=== PATIENT | male | born 1970 | race Caucasian/White ===

== ENCOUNTER 2016-12-01 12:13 | Day surgery (SDC) | payer BC, OTHER ==
[~2016-12-01 12:13] MED LIST: RINGERS SOLUTION,LACTATED 1,000 ML IV PRN; ceFAZolin SODIUM 1 GM in DEXTROSE 5 % IN WATER 100 ML IV PRN
--- OUTSIDE RECORDS SUMMARY | 2016-12-01 12:17 | XMS REPORT | Continuity of Care Document ---
:1970 Author Organization [employer] [place] [address] Care Team Providers Name Role Phone Bryon Valera Primary Care Provider [phone] Source Comments This disclosure is being made pursuant to the [employer] Away program and contain all information available regarding this patient.[employer] Active Allergies and Adverse Reactions No Known Allergies Current Medications Be aware that medications may not be up to date as of this document. Alwaysverify current medications with the patient. Prescription Sig. Disp. Refills Start Date End Date Status albuterol (PROAIR Inhale 2 1 Inhaler 3 10/28/2016 Active HFA) 108 (90 Base) puffs into MCG/ACT inhaler the lungs every 4 (four) hours as needed for Wheezing. lisinopril Take 1 tablet 30 tablet 11 11/02/2016 Active (PRINIVIL,ZESTRIL) by mouth 5 MG tablet daily. lisinopril Take 1 tablet 30 tablet 11 10/28/2016 11/02/2016 Discontinued (PRINIVIL,ZESTRIL) by mouth 5 MG tablet daily. lisinopril Take 1 tablet 30 tablet 11 11/02/2016 11/02/2016 Discontinued (PRINIVIL,ZESTRIL) by mouth 5 MG tablet daily. Active Problems Problem Noted Date Essential hypertension, benign 10/13/2016 Dyshidrosis 10/18/2014 Most Recent Encounters Date Type Specialty Providers Description 11/10/2016 Refill Family Medicine Valerie Norton RN 10/28/2016 Refill Family Medicine Ayaka Durán RN Chronic cough (Primary Dx); Essential hypertension 10/13/2016 Office Visit Family Medicine Jeff Prieto DO Essential hypertension (Primary Dx); Chronic cough; Mixed hyperlipidemia 10/13/2016 Abstract Family Medicine Татьяна Barnard RN Social History Tobacco Use Types Packs/Day Years Used Date Current Every Day Smoker 1 32 Tobacco Cessation:Ready to Quit: No; Counseling Given: Yes Comments: Alcohol Use Drinks/Week oz/Week Comments Yes regular use of hard liquor 5th of a bottle Last Filed Vital Signs Vital Sign Reading Time Taken Blood Pressure 135/93 10/13/2016 11:21 AM CDT Pulse 67 10/13/2016 11:21 AM CDT Temperature 35.6 C (96.1 F) 10/13/2016 11:21 AM CDT Respiratory Rate 16 10/13/2016 11:21 AM CDT Height 1.854 m (6' 1") 10/18/2014 10:58 AM CDT Weight 88.451 kg (195 lb) 10/13/2016 11:21 AM CDT Body Mass Index 25.73 10/13/2016 11:21 AM CDT Oxygen Saturation 98% 10/13/2016 11:21 AM CDT Plan of Care Patient Goal Type Goal Blood Pressure Blood Pressure below 140/90 Health Maintenance Due Date Last Done Comments Pneumococcal Medium Risk 19-64 yo (1 of 1 - PPSV23) 1989 Tetanus/Pertussis (1 - Tdap) 1989 Influenza Immunization (#1) 2016 Results from Last 3 Months Not on file
[2016-12-01] MEDS ORDERED: RINGERS SOLUTION,LACTATED 1,000 ML IV ONE (12:43)
[2016-12-01] MEDS ORDERED: BUPIVACAINE HCL 50 ML VIAL IJ ONE (13:20)
[2016-12-01] MEDS ORDERED: BUPIVACAINE HCL/EPINEPHRINE 50 ML VIAL IJ ONE (13:20)
[2016-12-01] MEDS ORDERED: DEXAMETHASONE IJ ONE (14:35)
[2016-12-01] MEDS ORDERED: HYDROcodone/ACETAMINOPHEN 1 EACH TABLET PO PRN (15:20)
[2016-12-01] MEDS ORDERED: PROCHLORPERAZINE EDISYLATE 5 MG/ML VIAL IM PRN (15:21)
[2016-12-01 16:12] VITALS: BP 125/69
== END 2016-12-01 12:14 | disposition home or self-care (01) ==
LOC: AMB 12:13
PROVIDERS: ATTEND Podiatrist
PROC: 0YBM0ZX Excision of Right Foot, Open Approach, Diagnostic (ICD-10-PCS; principal; 2016-12-01 13:10)
DX: D36.7 Benign neoplasm of other specified sites (principal); F17.200 Nicotine dependence, unspecified, uncomplicated; Z68.25 Body mass index [BMI] 25.0-25.9, adult

== ENCOUNTER 2017-02-02 10:41 | Emergency (ER) | payer BC ==
[2017-02-02 10:52] VITALS: BP 145/88
--- OUTSIDE RECORDS SUMMARY | 2017-02-02 11:39 | XMS REPORT | Encounter Summary ---
:1970 Author Organization [employer] [place] [address] Care Team Providers Name Role Phone Unavailable Primary Care Provider Unavailable Reason for Visit Reason Comments Medication Refill Encounter Details Date Type Department Care Team Description 10/28/2016 Refill [facility] Ayaka Durán RN Chronic cough (Primary Dx); [address] Essential hypertension [address] [place] [address] [place] [address] [phone] Social History Tobacco Use Types Packs/Day Years Used Date Current Every Day Smoker 1 32 Alcohol Use Drinks/Week oz/Week Comments Yes regular use of hard liquor 5th of a bottle Sex Assigned at Date Recorded Not on file as of this encounter Plan of Treatment Not on fileas of this encounter Goals Patient Goal Type Goal Recent Progress Patient-Stated? Author Blood Pressure Blood Pressure < 135/93(10/13/2016 Jeff Banks 140/90 11:21 AM CDT) V, DO as of this encounter Visit Diagnoses Diagnosis Chronic cough - Primary Cough Essential hypertension Unspecified essential hypertension in this encounter
--- OUTSIDE RECORDS SUMMARY | 2017-02-02 11:39 | XMS REPORT | Encounter Summary ---
:1970 Author Organization [employer] [place] [address] Care Team Providers Name Role Phone Unavailable Primary Care Provider Unavailable Reason for Visit Reason Comments Medication Refill Encounter Details Date Type Department Care Team Description 11/10/2016 Refill [facility] Valerie Gambino, RN [facility] [id number] [place] [address] [phone] Social History Tobacco Use Types Packs/Day Years [...] DO as of this encounter Visit Diagnoses Not on filein this encounter
--- OUTSIDE RECORDS SUMMARY | 2017-02-02 11:39 | XMS REPORT | Clinical Summary ---
:1970 Author Organization [employer] [place] [address] Care Team Providers Name Role Phone Unavailable Primary Care Provider Unavailable Source Comments This disclosure is being made pursuant to the [employer] program and maynot contain all information available regarding this patient.[employer] Allergies No Known Allergies Current Medications Be aware that medications may not be up to date as of this document. Alwaysverify current medications with the patient. Prescription Sig. Disp. 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 lisinopril Take 1 tablet by 30 tablet 11 11/02/2016 Active (PRINIVIL,ZESTRIL) 5 MG mouth daily. tabletIndications:Essen tial hypertension Active Problems Problem Noted Date Essential hypertension, benign 10/13/2016 Dyshidrosis 10/18/2014 Encounters Date Type Specialty Care Team Description 11/10/2016 Refill Family Medicine Valerie Norton RN from Last 3 Months Family History Medical History Relation Name Comments Cancer Father Relation Name Status Comments Father Social History Tobacco Use Types Packs/Day Years Used Date Current Every Day Smoker 1 32 Tobacco Cessation:Ready to Quit: No; Counseling Given: Yes Alcohol Use Drinks/Week oz/Week Comments Yes regular use of hard liquor 5th of a bottle Sex Assigned at Date Recorded Not on file Last Filed Vital Signs Vital Sign Reading Time Taken Blood Pressure 135/93 10/13/2016 11:21 AM CDT Pulse 67 10/13/2016 11:21 AM CDT Temperature 35.6 C (96.1 F) 10/13/2016 11:21 AM CDT Respiratory Rate 16 10/13/2016 11:21 AM CDT Oxygen Saturation 98% 10/13/2016 11:21 AM CDT Inhaled Oxygen Concentration - - Weight 88.5 kg (195 lb) 10/13/2016 11:21 AM CDT Height 185.4 cm (6' 1") 10/18/2014 10:58 AM CDT Body Mass Index 25.73 10/13/2016 11:21 AM CDT Plan of Treatment Health Maintenance Due Date Last Done Comments Pneumococcal Medium Risk 19-64 yo (1 of 1 - PPSV23) 1989 Tetanus/Pertussis (1 - Tdap) 1989 INFLUENZA IMMUNIZATION (#1) 2017 Goals Patient Goal Type Goal Recent Progress Patient-Stated? Author Blood Pressure Blood Pressure < 135/93(10/13/2016 Jeff Banks 140/90 11:21 AM CDT) V, DO Results Not on filefrom Last 3 Months Insurance Payer Benefit Plan / Group Subscriber ID Type Phone Address [facility] [id number] [facility] [id number] [place] [address] [facility] ZZ BANNER [id number] [address] [place] [address] y [phone] [place] [address]
--- OUTSIDE RECORDS SUMMARY | 2017-02-02 11:40 | XMS REPORT | Encounter Summary ---
:1970 Author Organization [employer] [place] [address] Care Team Providers Name Role Phone Unavailable Primary Care Provider Unavailable Encounter Details Date Type Department Care Team Description 10/13/2016 Abstract [facility] Татьяна Cardenas RN [address] [place] [address] [phone] Social History Tobacco Use Types Packs/Day Years [...]
--- OUTSIDE RECORDS SUMMARY | 2017-02-02 11:42 | XMS REPORT | Encounter Summary ---
:1970 Author Organization [employer] [place] [address] Care Team Providers Name Role Phone Unavailable Primary Care Provider Unavailable Reason for Referral Diagnostic Radiology (Routine) Status Reason Specialty Diagnoses / Referred By Referred To Procedures Contact Contact Authorized Diagnoses Chronic cough Jeff Prieto V, Procedures [place]R CHE[place] 2 [place] [address] [place], [place] [address] Reason for Visit Reason Comments Elevated Blood Pressure Follow-up Encounter Details Date Type Department Care Team Description 10/13/2016 Office Visit [facility] Jeff Prieto V, Essential hypertension (Primary Dx); [facility] Chronic cough; [address] [facility] [address] [place] [id number] [place] [address] [phone] Social History Tobacco Use Types Packs/Day Years Used Date Current Every Day Smoker 1 32 Alcohol Use Drinks/Week oz/Week Comments Yes regular use of hard liquor 5th of a bottle Sex Assigned at Date Recorded Not on file as of this encounter Last Filed Vital Signs Vital Sign Reading Time Taken Blood Pressure 135/93 10/13/2016 11:21 AM CDT Pulse 67 10/13/2016 11:21 AM CDT Temperature 35.6 C (96.1 F) 10/13/2016 11:21 AM CDT Respiratory Rate 16 10/13/2016 11:21 AM CDT Oxygen Saturation 98% 10/13/2016 11:21 AM CDT Inhaled Oxygen Concentration - - Weight 88.5 kg (195 lb) 10/13/2016 11:21 AM CDT Height - - Body Mass Index 25.73 10/13/2016 11:21 AM CDT in this encounter Instructions Patient Instructions - Jeff Prieto DO - 10/13/2016 11:57 AM CDT High Blood Pressure: Care Instructions Your Care Instructions If your blood pressure is usually above 140/90, you have high blood pressure, or hypertension. That means the top number is 140 or higher or the bottom number is 90 or higher, or both. Despite what a lot of people think, high blood pressure usually doesn't cause headaches or make you feel dizzy or lightheaded. It usually has no symptoms. But it does increase your risk for heart attack, stroke, and kidney or eye damage. The higher your blood pressure, the more your risk increases. Your doctor will give you a goal for your blood pressure. Your goal will be based on your health and your age. An example of a goal is to keep your blood pressure below 140/90. Lifestyle changes, such as eating healthy and being active, are always important to help lower blood pressure. You might also take medicine to reach your blood pressure goal. Follow-up care is a tracy part of your treatment and safety. Be sure to make and go to all appointments, and call your doctor if you are having problems. It's also a good idea to know your test resultsand keep a list of the medicines you take. How can you care for yourself at home? Medical treatment If you stop taking your medicine, your blood pressure will go back up. You may take one or more types of medicine to lower your blood pressure. Be safe with medicines. Take your medicine exactly asprescribed. Call your doctor if you think you arehaving a problem with your medicine. Talk to your doctor before you start taking aspirin every day. Aspirin can help certain people lower their risk of a heart attack or stroke. But taking aspirin isn't right for everyone, because itcan cause serious bleeding. See your doctor regularly. You may need to see the doctor more often at first or until your blood pressure comes down. If you are taking blood pressure medicine, talk to your doctor before you take decongestants or anti-inflammatory medicine, such as ibuprofen. Some of these medicines can raise blood pressure. Learn how to check your blood pressure at home. Lifestyle changes Stay at a healthy weight. This is especially important if you put on weight around the waist. Losing even 10 pounds can help you lower your blood pressure. If your doctor recommends it, get more exercise. Walking is a good choice. Bit by bit, increase the amount you walk every day. Try for at least 30 minutes on most days of the week. You also may want to swim, bike, or do other activities. Avoid or limit alcohol. Talk to your doctor about whether you can drink any alcohol. Try to limit how much sodium you eat to less than 2,300 milligrams (mg) a day. Your doctor may ask you to try to eat less than 1,500 mg a day. Eat plenty of fruits (such as bananas and oranges), vegetables, legumes, whole grains, and low-fat dairy products. Lower the amount of saturated fat in your diet. Saturated fat is found in animal products such as milk, cheese, and meat. Limiting these foods may help you lose weight and also lower your risk forheart disease. Do not smoke. Smoking increases your risk for heart attack and stroke. If you need help quitting, talk to your doctor about stop-smoking programs and medicines. These can increase your chances of quitting for good. When should you call for help? Call 911 anytime you think you may need emergency care. This may mean having symptoms that suggest that your blood pressure is causing a serious heart or blood vessel problem. Your blood pressure maybe over 180/110. For example, call 911 if: You have symptoms of a heart attack. These may include: Chest pain or pressure, or a strange feeling in the chest. Sweating. Shortness of breath. Nausea or vomiting. Pain, pressure, or a strange feeling in the back, neck, jaw, or upper belly or in one or both shoulders or arms. Lightheadedness or sudden weakness. A fast or irregular heartbeat. You have symptoms of a stroke. These may include: Sudden numbness, tingling, weakness, or loss of movement in your face, arm, or leg, especially on only one side of your body. Sudden vision changes. Sudden trouble speaking. Sudden confusion or trouble understanding simple statements. Sudden problems with walking or balance. A sudden, severe headache that is different from past headaches. You have severe back or belly pain. Do not wait until your blood pressure comes down on its own. Get help right away. Call your doctor now or seek immediate care if: Your blood pressure is much higher than normal (such as 180/110 or higher), but you don't have symptoms. You think high blood pressure is causing symptoms, such as: Severe headache. Blurry vision. Watch closely for changes in your health, and be sure to contact your doctor if: Your blood pressure measures 140/90 or higher at least 2 times. That means the top number is 140 or higher or the bottom number is 90 or higher, or both. You think you may be having side effects from your blood pressure medicine. Your blood pressure is usually normal, but it goes above normal at least 2 times. Where can you learn more? Go to the "Search [employer] Library" box on [employer] https:// Relay.[employer]m/[employer]/ by clicking on the magnifying glass tab. Enter X567 in the search box to learn more about "High Blood Pressure: Care Instructions." Not on [employer]? Go to https://Chatty/[employer] Resources/ and click the "Sign Up Now" link to request an activation code. Current as of: February 10, 2016 Content Version: 11.2 1407-2854 [employer]. Care instructions adapted under license by your healthcare professional. This care instruction is for use with your licensed healthcare professional. If you havequestions about a medical condition or this instruction, always ask your healthcare professional. [employer] disclaims any warranty or liability for your use of this information. in this encounter Progress Notes Jeff Prieto DO - 10/13/2016 11:25 AM CDTFormatting of this note may be different from the original. Subjective: Patient ID: Freeman Malhotra is a 46 y.o. male. Elevated Blood Pressure This is a new problem. The current episode started 1 to 4 weeks ago. The problem has been gradually improving. Associated symptoms include coughing. Pertinent negatives include no abdominal pain, chest pain, headaches or visual change. Nothing aggravates the symptoms. He has tried nothing for the symptoms. Patient's problem list, medications, allergies, past medical, surgical, social and family histories were reviewed and updated as appropriate. Review of Systems Constitutional: Negative. HENT: Positive for hearing loss. Eyes: Negative. Respiratory: Positive for cough and shortness of breath. Productive cough Cardiovascular: Negative. Negative for chest pain. Gastrointestinal: Negative for abdominal pain. Endocrine: Negative. Genitourinary: Negative. Musculoskeletal: Negative. Skin: Negative. Allergic/Immunologic: Negative. Neurological: Negative. Negative for headaches. Hematological: Negative. Psychiatric/Behavioral: Negative. Objective: BP 135/93 mmHg | Pulse 67 | Temp(Src) 35.6 C (96.1 F) | Resp 16 | Wt 88.451 kg (195 lb) | SpO2 98% Body mass index is 25.73 kg/(m^2). Physical Exam Constitutional: He is oriented to person, place, and time. He appears well- developed and well-nourished. Cardiovascular: Normal rate, regular rhythm and normal heart sounds. Pulmonary/Chest: Effort normal. Decreased breath sounds bilaterally diffuse Abdominal: Soft. Musculoskeletal: Normal range of motion. Neurological: He is alert and oriented to person, place, and time. Skin: Skin is warm and dry. Nursing note and vitals reviewed. Assessment/Orders: Diagnoses and all orders for this visit: Essential hypertension - lisinopril (PRINIVIL,ZESTRIL) 5 MG tablet; Take 1 tablet by mouth daily. Chronic cough - Cancel: XR CHEST 2 VIEWS PA AND LAT - albuterol (PROAIR HFA) 108 (90 Base) MCG/ACT inhaler; Inhale 2 puffs into the lungs every 4 (four) hours as needed for Wheezing. Mixed hyperlipidemia Plan: Discussed smoking cessation. BP log and call if questions or concerns. Improve diet and exercise and will recheck lipids in 3 months. F/u 1 month. in this encounter Plan of Treatment Name Priority Associated Diagnoses Order Schedule XR CHEST 2 VIEWS PA AND Routine Chronic cough Expected: 10/13/2016 LAT (Approximate), Expires: 10/13/2017 as of this encounter Goals Patient Goal Type Goal Recent Progress Patient-Stated? Author Blood Pressure Blood Pressure < 135/93(10/13/2016 Jeff Banks 140/90 11:21 AM CDT) V, DO as of this encounter Visit Diagnoses Diagnosis Essential hypertension - Primary Unspecified essential hypertension Chronic cough Cough Mixed hyperlipidemia in this encounter
--- NOTE | 2017-02-02 11:58 | ERNOTE ---
Upper Extremity HPI - Narrative Date of Service: 02/02/17 - General Extremities Pain Location: hand: right Time Seen by Provider: 02/02/17 11:24 Source: patient, family, RN notes reviewed Exam Limitations: no limitations - Immun/Allergies/Home Medications Immunizations: IMMUNIZATION HX Immunizations Up to Date Yes History of Influenza Vaccine No Hx Pneumococcal Vaccination No Allergies/Adverse Reactions: Allergies Allergy/AdvReac Type Severity Reaction Status Date / Time No Known Allergies Allergy Verified 02/02/17 10:49 Home Medications: HOME MEDICATIONS Amoxicillin 500 mg PO TID 02/02/17 [Last Taken Unknown] oxyCODONE HCL [Oxycodone] 5 mg PO Q6H PRN 02/02/17 [Last Taken Unknown] - History of Present Illness Narrative: 46 y/o male ambulatory to the ED for weakness in his right hand. He reports waking up today and not being able to move the hand. He is right handed. He was seen elsewhere this morning for a drug test in order for him to return to work after being off for 2 months for a foot surgery. It was noted that his hand was not moving normally and recommended that he be evaluated. He was also seen in the ED at [facility] last night for dental pain. He was prescribed amoxicillin and oxycodone. Occurred: this morning Method of Injury: Reports: no apparent injury Associated Symptoms: Reports: tingling, weakness. Denies: numbness distally, loss of feeling, loss of power (rt arm) Other Injuries: Reports: none Prior Treament: Denies: similar symptoms before Review of Systems - Review of Systems Constitutional: Absent: fever, chills, malaise EYE: Absent: eye pain, vision changes ENT: Present: no symptoms reported Respiratory: Absent: shortness of breath, cough Cardiology: Absent: chest pain, palpitations, edema Gastrointestinal/Abdominal: Present: no symptoms reported Genitourinary: Present: no symptoms reported Musculoskeletal: Absent: joint pain, joint swelling Skin: Absent: rash, lesions, lumps Neurological: Present: weakness, tingling. Absent: numbness Endocrine: Present: no symptoms reported Hematologic/Lymphatic: Present: no symptoms reported Psych: Present: no symptoms reported - Patient's Past Medical History Patient History - Medical: Anxiety, Depression, Other Patient History - Cardiac/Respiratory: No pertinent hx Patient History - Cancer: No Hx of Cancer Patient History - Surgical Procedures: Cataracts, T & A, Other Patient History - Other: None - Family History Father Family History - Medical: No pertinent hx Family History - Cardiac/Respiratory: No pertinent hx Family History - Cancer: Other Mother Family History - Medical: , Other Family History - Cardiac/Respiratory: No pertinent hx Family History - Cancer: No pertinent family hx - Social History Living Situations: home Abuse History: No History of abuse Psych History: No pertinent hx Does anyone smoke in the home?: Yes Smoking Status: Current every day smoker Alcohol Use: occasionally Drug Use: other - Immunizations Immunizations Up to Date: Yes Hx Pneumococcal Vaccination: No History of Influenza Vaccine: No Physical Exam - Physical Exam General Appearance: Present: wd/wn, alert, no apparent distress Head Exam: Present: normal inspection Eye Exam: Normal inspection: bilateral, PERRL: bilateral Neck: Present: normal inspection, nontender, supple, full range of motion Respiratory: Present: no respiratory distress, no accessory muscle use, expiration (prolonged), wheezing Cardiovascular/Chest: Present: regular rate, rhythm, no murmur, normal peripheral pulses Peripheral Pulses: N=norm/S=strong/W=weak/B=bound/A=absent: Radial (R): Strong, Radial (L): Strong Extremity Exam: Present: normal inspection, non-tender, no edema, decreased range of motion - mildly decreased in fingers of right hand Neurological Exam: Present: alert, oriented, normal 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
== END 2017-02-02 12:03 | disposition home or self-care (01) ==
LOC: ER 10:41
DX: G56.31 Lesion of radial nerve, right upper limb (principal); F17.200 Nicotine dependence, unspecified, uncomplicated

== ENCOUNTER 2017-02-03 13:20 | Emergency (ER) | payer BC ==
[2017-02-03 13:31] VITALS: BP 150/95
--- OUTSIDE RECORDS SUMMARY | 2017-02-03 14:57 | XMS REPORT | Encounter Summary ---
:1970 Author Organization [employer] [place] [address] Care Team Providers Name Role Phone Unavailable Primary Care Provider Unavailable Reason for Visit Reason Comments Medication Refill Encounter Details Date Type Department Care Team Description 10/28/2016 Refill [facility] Ayaka Durán RN Chronic cough (Primary Dx); [address] Essential hypertension [address] [place] [address] [place] [address] Social History Tobacco Use Types Packs/Day Years Used Date Current Every Day Smoker 1 32 Alcohol Use Drinks/Week oz/Week Comments Yes regular use of hard liquor 5th of a bottle Sex Assigned at Date Recorded Not on file as of this encounter Plan of Treatment Date Type Specialty Care Team Description 02/08/2017 Appointment Family Medicine Jeff Prieto DO [address] [place] [phone] as of this encounter Goals Patient Goal Type Goal Recent Progress Patient-Stated? Author Blood Pressure Blood Pressure < 135/93(10/13/2016 No Jeff Prieto 140/90 11:21 AM CDT) DO Denis as of this encounter Visit Diagnoses Diagnosis Chronic cough - Primary Cough Essential hypertension Unspecified essential hypertension in this encounter
--- OUTSIDE RECORDS SUMMARY | 2017-02-03 14:57 | XMS REPORT | Encounter Summary ---
:1970 Author Organization [employer] [place] [address] Care Team Providers Name Role Phone Unavailable Primary Care Provider Unavailable Reason for Visit Reason Comments Medication Refill Encounter Details Date Type Department Care Team Description 11/10/2016 Refill [facility] Valerie Gambino, RN [address] [address] [place] [address] Social History Tobacco Use Types Packs/Day Years Used Date Current Every Day Smoker 1 32 Alcohol Use Drinks/Week oz/Week Comments Yes regular use of hard liquor 5th of a bottle Sex Assigned at Date Recorded Not on file as of this encounter Plan of Treatment Date Type Specialty Care Team Description 02/08/2017 Appointment Family Medicine Jeff Prieto DO [address] [place] [address] [phone] as of this encounter Goals Patient Goal Type Goal Recent Progress Patient-Stated? Author Blood Pressure Blood Pressure < 135/93(10/13/2016 No Jeff Prieto 140/90 11:21 AM CDT) DO Denis as of this encounter Visit Diagnoses Not on filein this encounter
--- OUTSIDE RECORDS SUMMARY | 2017-02-03 14:57 | XMS REPORT | Clinical Summary ---
:1970 Author Organization [employer] [place] [address] Care Team Providers Name Role Phone Unavailable Primary Care Provider Unavailable Source Comments This disclosure is being made pursuant to the e[employer] program and maynot contain all information available regarding this patient.[employer] Allergies No Known Allergies Current Medications Be aware that medications may not be up to date as of this document. Alwaysverify current medications with the patient. Prescription Sig. Disp. 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 Author Blood Pressure Blood Pressure < 135/93(10/13/2016 No Jeff Prieto 140/90 11:21 AM CDT) V, DO Results Not on filefrom Last 3 Months Insurance Payer Benefit Plan / Group Subscriber ID Type Phone Address [facility] [id number] [id number] [place] [address] [facility] [id number] [id number] [place] [address] Home: [address] [facility] y [phone] [address]
--- OUTSIDE RECORDS SUMMARY | 2017-02-03 14:58 | XMS REPORT | Encounter Summary ---
:1970 Author Organization [employer] [place] [address] Care Team Providers Name Role Phone Unavailable Primary Care Provider Unavailable Reason for Referral Diagnostic Radiology (Routine) Status Reason Specialty Diagnoses / Referred By Referred To Procedures Contact Contact Authorized Diagnoses Chronic cough Jeff Prieto V, Procedures [place] 2 [place] [address] [place], [place] [address] Reason for Visit Reason Comments Elevated Blood Pressure Follow-up Encounter Details Date Type Department Care Team Description 10/13/2016 Office Visit [facility] Jeff Prieto V, Essential hypertension (Primary Dx); [facility] Chronic cough; [address] [facility] [address] [place] [id number] [place] [address] [phone] Social History Tobacco Use Types Packs/Day Years [...] you learn more? Go to the "Search Moodswing Library" box on Sensitive Object [email or web address] by clicking on the magnifying glass tab. Enter X567 in the search box to learn more about "High Blood Pressure: Care Instructions." Not on Sensitive Object? Go to [email or web address]/ and click the "Sign Up Now" link to request an activation code. Current as of: February 10, 2016 Content Version: 11.2 7422-1330 [employer]. Care instructions adapted under license by your healthcare professional. This care instruction is for use with your licensed healthcare professional. If you havequestions about a medical condition or this instruction, always ask your healthcare professional. [employer] disclaims any warranty or liability for your [...] month. in this encounter Plan of Treatment Date Type Specialty Care Team Description 02/08/2017 Appointment Family Medicine Jeff Prieto DO [address] [place] [address] [phone] Name Priority Associated Diagnoses Order Schedule XR CHEST 2 VIEWS PA AND Routine Chronic cough Expected: 10/13/2016 LAT (Approximate), Expires: 10/13/2017 as of this encounter Goals Patient Goal Type Goal Recent Progress Patient-Stated? Author Blood Pressure Blood Pressure < 135/93(10/13/2016 Jeff Banks 140/90 11:21 AM CDT) DO Denis as of this encounter Visit Diagnoses Diagnosis Essential hypertension - Primary Unspecified essential hypertension Chronic cough Cough Mixed hyperlipidemia in this encounter
--- OUTSIDE RECORDS SUMMARY | 2017-02-03 14:58 | XMS REPORT | Encounter Summary ---
:1970 Author Organization [employer] [place] [address] Care Team Providers Name Role Phone Unavailable Primary Care Provider Unavailable Encounter Details Date Type Department Care Team Description 10/13/2016 Abstract [facility] Татьяна Cardenas RN [address] [place] [address] [phone] Social History Tobacco Use Types Packs/Day Years Used Date Current Every Day Smoker 1 32 Alcohol Use Drinks/Week oz/Week Comments Yes regular use of hard liquor 5th of a bottle Sex Assigned at Date Recorded Not on file as of this encounter Plan of Treatment Date Type Specialty Care Team Description 02/08/2017 Appointment Family Medicine Jeff Prieto DO [address] [place], [place] [address] as of this encounter Goals Patient Goal Type Goal Recent Progress Patient-Stated? Author Blood Pressure Blood Pressure < 135/93(10/13/2016 No Jeff Prieto 140/90 11:21 AM CDT) DO Denis as of this encounter Visit Diagnoses Not on filein this encounter
--- NOTE | 2017-02-03 15:09 | ERNOTE ---
Upper Extremity HPI - General Time Seen by Provider: 02/03/17 14:46 Source: patient Exam Limitations: no limitations - Immun/Allergies/Home Medications Immunizations: IMMUNIZATION HX Immunizations Up to Date Yes History of Influenza Vaccine No Hx Pneumococcal Vaccination No Allergies/Adverse Reactions: Allergies Allergy/AdvReac Type Severity Reaction Status Date / Time No Known Allergies Allergy Verified 02/02/17 10:49 Home Medications: HOME MEDICATIONS Amoxicillin 500 mg PO TID 02/02/17 [Last Taken Unknown] oxyCODONE HCL [Oxycodone] 5 mg PO Q6H PRN 02/02/17 [Last Taken Unknown] - History of Present Illness Narrative: Patient is here for a second opinion on his right wrist weakness. He was seen in the [facility] two nights ago and received pain meds for dental pain. Yesterday when he woke up in the morning he noticed difficulty in extending his right wrist. He was seen in our ER and diagnosed with radial nerve palsy. As it has not resolved he is concerned and would like a second opinion Review of Systems - Review of Systems Constitutional: Absent: recent illness, fever ENT: Absent: nose congestion, sore throat Respiratory: Absent: shortness of breath Cardiology: Absent: chest pain Gastrointestinal/Abdominal: Absent: nausea, abdominal pain Musculoskeletal: Absent: back pain, neck pain Neurological: Present: weakness, tingling - Patient's Past Medical History Patient History - Medical: Anxiety, Depression, Other Patient History - Cardiac/Respiratory: No pertinent hx Patient History - Cancer: No Hx of Cancer Patient History - Surgical Procedures: Cataracts, T & A, Other Patient History - Other: None - Family History Father Family History - Medical: No pertinent hx Family History - Cardiac/Respiratory: No pertinent hx Family History - Cancer: Other Mother Family History - Medical: , Other Family History - Cardiac/Respiratory: No pertinent hx Family History - Cancer: No pertinent family hx - Social History Living Situations: home Abuse History: No History of abuse Psych History: No pertinent hx Does anyone smoke in the home?: Yes Smoking Status: Current every day smoker Have you smoked in the past 12 months: Yes Alcohol Use: occasionally Drug Use: none - Immunizations Immunizations Up to Date: Yes Hx Pneumococcal Vaccination: No History of Influenza Vaccine: No Physical Exam - Physical Exam General Appearance: Present: wd/wn, alert, no apparent distress Head Exam: Present: normal inspection, no evidence of injury Neck: Present: normal inspection, nontender, supple, full range of motion Respiratory: Present: no respiratory distress, normal breath sounds, no accessory muscle use, lungs clear Cardiovascular/Chest: Present: regular rate, rhythm, no murmur Extremity Exam: Present: normal inspection, non-tender Neurological Exam: Present: alert, oriented, normal mood/affect, motor weakness - decreased strength on wrist extension, decreased sensation over radial side of first metacarpal, otherwise normal strenght and sensation Skin Exam: Present: normal color, warm/dry ED Progress - Vital Signs Patient's Vital Signs:: I have reviewed the patient's vital signs. Vital Signs: Vital Signs 02/03/17 13:27 Temperature 35.9 C L Pulse Rate 107 H Respiratory 16 Rate Blood Pressure 150/95 O2 Sat by Pulse 98 Oximetry - Progress/Reassessment Chief Complaint: Hand Injury/Pain Progress Note-Subjective: 02/03/17 15:02 reviewed chart from prior visit Departure Clinical Impression: Wednesday nerve palsy Qualifiers: Laterality: right Qualified Code(s): G56.31 - Lesion of radial nerve, right upper limb - Departure Disposition: Home self-care Condition: Good Instructions: Radial Nerve Palsy, Form - Excuse from Work, School, or Physical Activity Additional Instructions: the weakness might take a couple of weeks of longer to resolve Referrals: Carole Rocah MD [Staff Physician] - 02/09/17 8:00 am
== END 2017-02-03 15:11 | disposition home or self-care (01) ==
LOC: ER 13:20
DX: G56.31 Lesion of radial nerve, right upper limb (principal); F17.200 Nicotine dependence, unspecified, uncomplicated